=== PATIENT | male | born 1985 | race Caucasian/White ===

== ENCOUNTER 2024-07-26 15:52 | Emergency (ER) | payer OTHER ==
[2024-07-26] MEDS: Diphtheria,Pertussis(Acell),Tetanus Vaccine 0.5 ML Syringe IM ONE (16:32)
[2024-07-26] MEDS: Bacitracin Oint 1 GM U/D Packet TOP ONE (16:33)
[2024-07-26] MEDS: Lidocaine 1% with EPINEPHrine 1:100,000 20 ML MDV INJECT ONE (16:33)
== END 2024-07-26 18:00 | disposition home or self-care (01) ==
LOC: JP.ED 15:52
DX: S01.81XA Laceration without foreign body of other part of head, initial encounter (principal); Z23 Encounter for immunization; W21.00XA Struck by hit or thrown ball, unspecified type, initial encounter
CPT/HCPCS: 12013; 90471; 90715; 99282; J2004